=== PATIENT | male | born 1960 | race Caucasian/White ===

== ENCOUNTER 2024-03-11 09:31 | Outpatient (CLI) | payer MEDICARE, BC ==
[~2024-03-11 09:31] MED LIST: DILT-115 PO; DULO30CA52 PO; HYDR25TA5 PO; IBUP-1985 PO; LATA2.5D14 EACHEYE; NICO-731 TOP; PANT40TA54 PO; RIVA20TA PO; SENN-36 PO
== END 2024-03-11 23:59 | disposition home or self-care (01) ==
LOC: VAS 09:31
PROVIDERS: ATTEND Internal Medicine
DX: L03.113 Cellulitis of right upper limb (principal); L03.114 Cellulitis of left upper limb
CPT/HCPCS: 93925